=== PATIENT | male | born 1980 | race Caucasian/White ===

== ENCOUNTER 2016-12-18 12:50 | Emergency (ER) | payer SELFPAY ==
--- NOTE | 2016-12-19 15:54 | ER ---
ADMIT: 12/18/2016 RM/LOC: ER [facility] MR#: [id number] [address] [address] HEATH GIBSON [address] [place] [address] Emergency Room Report SEX: M AGE: 36 : 1980 DATE: 12/18/2016 This 36-year-old with 3 days worth of redness, swelling, and now drainage of the left foot. He said this started spontaneously, was uncertain what the precipitating event was. Denies fever or chills. See T-sheet for history and physical. Wound was prepped with iodine, I and Dd. Cultures are pending at this time. He is given 2 g Ancef in the Emergency Department IV, given prescription for Keflex and Bactrim. Instructed to follow up Tuesday. DIAGNOSES: 1. Abscess. 2. Cellulitis. Yanick Armstrong MD/ sahil JOB #: [id number] CC: Alberto Posada MD, Attending Physician Saroj Pichardo MD, Family Physician
[2016-12-25] MEDS ORDERED: AUGMENTIN 875-1 EACH PO (09:38)
[2016-12-25] MEDS ORDERED: NORCO 5-325 TA1 EACH PO (09:38)
[2016-12-25] MEDS ORDERED: GLUCOPHAGE-DPS500 MG PO (09:38)
== END 2016-12-18 14:40 | disposition home or self-care (01) ==
LOC: ER 12:50 → EDBD 12:50 → ER 14:40
DX: L02.612 Cutaneous abscess of left foot (principal); Z88.8 Allergy status to other drugs, medicaments and biological substances

== ENCOUNTER 2016-12-20 20:27 | Inpatient (IN) | payer SELFPAY ==
[~2016-12-20] VITALS: Ht 177.8 cm; Wt 81.5 kg
--- NOTE | ~2016-12-20 | CO ---
ADMIT: 12/20/2016 RM/LOC: 527 [facility] MR#: [id number] [address] [place] [address] [address] HEATH GIBSON [address] [place] [address] Consultation SEX: M AGE: 36 : 1980 DATE OF CONSULTATION: 12/21/2016 ATTENDING PHYSICIAN: Giorgi Zavala CONSULTING PHYSICIAN: Juan Carlos Fuller DPM CHIEF COMPLAINT: Left foot ulceration and abscess. HISTORY OF PRESENT ILLNESS: This is a 36-year-old male, who was seen through the ER for an abscess and admitted under City [facility]. The patient stated that 2 to 3 days ago, he began having redness and swelling. He has since had increased pain and drainage from the left foot. The patient was seen by the emergency room and started on Bactrim and Keflex. The patient was subsequently admitted for worsening symptoms. He was started on IV antibiotics. He has had severe pain in his foot. Denies any fever or chills at today's visit. PAST MEDICAL HISTORY: New onset diabetes. No previous health concerns. PAST SURGICAL HISTORY: None. SOCIAL HISTORY: Current smoker. Denies alcohol or drug abuse. FAMILY HISTORY: Noncontributory. REVIEW OF SYSTEMS: Negative except for stated above. ALLERGIES: NO KNOWN DRUG ALLERGIES. MEDICATIONS: Keflex and Bactrim. Please see the current list for hospital medications. PHYSICAL EXAMINATION: VITAL SIGNS: Temp 98.0, pulse is 68, respirations 18, blood pressure is 123/86, and O2 saturation 97% on room air. VASCULAR: DP and PT pulses are palpable bilaterally. Slight hair growth bilaterally. Capillary fill time is brisk bilaterally. NEURO: Light touch sensation is intact bilaterally. DERM: The patient has an ulceration post debridement, which measures 4.0 x 4.0 x 0.8 cm. The patient has a tunneling of 1.5 cm both proximally and at the interdigital space between the 3rd and 4th digits on the left. There is significant amount of purulent drainage. Hypergranular tissue at the wound border. Some fibrotic and necrotic tissue at the central aspect. No malodor. No proximal tracking. Edema is moderate. MUSCULOSKELETAL: Pain on palpation of the left foot. No change in the position of the digits. LABORATORY DATA: ESR is 37. Hemoglobin A1c is 9.7. Cultures are pending. Sodium 137, potassium 3.4, BUN is 10, and creatinine is 0.8. White count is 8.2, hemoglobin 13.1, hematocrit 38.3, and platelets are 241. Lactic acid is ADMIT: 12/20/2016 RM/LOC: 527 [facility] MR#: [id number] [id number] [place] [address] Consultation SEX: M AGE: 36 : 1980 1.1. X-ray shows no acute findings. MRI of the left foot shows an abscess adjacent to the ulceration. ASSESSMENT: 1. Diabetes. 2. Cellulitis. 3. Ulceration. 4. Peripheral vascular disease. PLAN: The patient was seen at bedside. Vascular and MRI were reviewed with the patient including the finding of abscess. It is determined at this time to provide Rapid Care for this condition. Bedside I and D was necessary. Verbal consent was obtained from the patient. A 5 mL of 2% lidocaine plain was used for anesthesia. Once anesthesia was obtained, sharp selective debridement down to and including the tendon and muscle was performed with a 15 blade and pickup as well as scissors. The patient tolerated this well and there were no complications. Repeat culture with swab at the depth of the wound was performed. Irrigation was provided and the wound was packed open. I suspect that the patient will need a more formal debridement with the use of local anesthesia and sedation. We will attempt to do this on . We will change the dressing twice daily with iodoform packing. Orders were written for wound care and weightbearing. We will continue to follow this patient and discuss this more with him tomorrow. The patient's questions were answered in detail. The hospital staff was used for interpretation. The risks, benefits, and alternatives as well as the likely requirements for daily dressing changes after discharge was described to him. Hope to discharge him Tuesday after the incision and drainage. His questions were answered in detail. Juan Carlos Fuller DPM/ sahil JOB #: [id number] CC: Giorgi Zavala, Attending Physician Giorgi Zavala, Family Physician
--- NOTE | ~2016-12-20 | WND ---
ADMIT: 12/20/2016 RM/LOC: 527 [facility] MR#: [id number] [id number] [place], [place] [address] HEATH GIBSON [address] [place] [address] Wound Care Clinic SEX: M AGE: 36 : 1980 DATE OF VISIT: 12/21/2016 TIME IN: 0920 hours. TIME OUT: 0925 hours. REASON FOR VISIT: Evaluation and treatment of left foot wound. Request for wound care from Dr. Mars. HISTORY OF PRESENT ILLNESS: This is a 36-year-old, male, who was seen in the emergency room on 12/18/2016, after three days worth of redness and swelling and drainage from his left foot. He stated it started spontaneously and is uncertain of any precipitating event. Denied any fever or chills. He was I and D'ed in the emergency room and cultures were taken. He was started on cephalexin and Bactrim and sent home. Request to follow up on 12/20/2016. He returned to the emergency room where it was noted he had increasing drainage, redness, and swelling of the foot. The primary wound cultures revealed group B strep susceptible to ampicillin. Emergency room spoke with Dr. Shah for admission. He was started on IV antibiotics. Wound Care is requested to see him for topical treatment. Podiatry has also been requested to see him. It was noticed that his glucose was in the 200s. WBC of 8.2, RBC is 4.4, hemoglobin 13.1, hematocrit 38.3. Electrolytes; sodium 138, potassium 3.5, chloride 105, CO2 of 22. Lactic acid on 12/20 was 1.1. His urinalysis also showed glucose. PAST MEDICAL HISTORY: Up to this point was essentially benign. ALLERGIES: To ibuprofen. CURRENT MEDICATIONS: Per the MAR. Please see the MAR for further details. 1. Glucophage 500 mg p.o. b.i.d. 2. Lovenox. 3. Zosyn. P.r.n. medication: 1. Colace. 2. Maalox. 3. Tylenol. 4. Tylenol suppository. 5. Normal saline. SOCIAL HISTORY: He is single. He is currently unemployed. He is Azeri speaking. He is living in [place] with a friend. He previously smoked. FAMILY HISTORY: Significant for strokes. REVIEW OF SYSTEMS: He is examined in his hospital bed where he is awake, alert, and oriented x3. No fever or chills. No nausea or vomiting. He is taking high-protein drinks at home. No cough, cold, or chest pain. He does ADMIT: 12/20/2016 RM/LOC: 527 [facility] MR#: [id number] [address] [id number] [place] [address] Wound Care Clinic SEX: M AGE: 36 : 1980 have increased pain when his left foot is touched. PHYSICAL EXAMINATION: Focused exam is to his left lower extremity with foot circumference 26 cm, ankle 24.5 cm, calf 20 cm, malleolus is 29.5 cm. The dorsal surface of his foot and ankle has an area of erythema that measures 6.5 cm x 10 cm. It is slightly warm to touch. On the dorsal surface of his foot between toe #3 and 4, there is a fluctuant necrotic area that measures 3 cm x 3 cm with depth of 1.2 cm. It is slightly fluctuant. There is purulent drainage noted from the wound. Posterior tibialis 1+. Dorsalis pedis is 2+. ASSESSMENT: Abscess and cellulitis to left foot between the third and fourth toe. TREATMENT PLAN: The area was cleansed well with normal saline and patted dry. The area of erythema was marked with a sharpie. He does have a Podiatry consult in place. This will need to be debrided. At this point in time, Wound Care will defer cares until after the Podiatry visit. The area was covered with oil emulsion gauze, 4x4s, and gauze wrap. The leg is elevated on pillows to help with swelling. I did speak with the floor staff. Thank you for this referral and Wound will continue to follow pending Podiatry's recommendations. Nerissa Lafleur APRN/ sahil JOB #: [id number] CC: Giorgi Zavala, Attending Physician Giorgi Zavala, Family Physician
--- NOTE | 2016-12-23 09:41 | CO ---
ADMIT: 12/20/2016 RM/LOC: 527 [facility] MR#: [id number] [address] [address] HEATH GIBSON [address] [place] [address] Consultation SEX: M AGE: 36 : 1980 DATE OF CONSULTATION: 12/21/2016 ATTENDING PHYSICIAN: Giorgi Zavala CONSULTING PHYSICIAN: Jackie Shah MD REASON FOR CONSULTATION: Left foot diabetic ulcer. Thank you, Dr. Mars, for the consult and involving me in this patient's care. HISTORY OF PRESENT ILLNESS: History was obtained via change advisor. Mr. Gibson is a 36-year-old man, originally from [facility] [place] [facility], who immigrated to [facility] around eight months back. He presented to the ER last week with increased erythema and draining abscess from his left anterior foot. He did not have any fevers or chills, and he was given 2 g of Ancef and discharged on Keflex and Bactrim. He returned back to the ER yesterday with worsening redness, erythema, and increased drainage from anterior webspace between 3rd and 4th digits. Wound cultures were done during his last visit, which grew group B Streptococcus and Gram positive avery. There are few Gram- negative rods on Gram stain as well. After reviewing his blood glucose levels and hemoglobin A1c, was also found to have diabetes mellitus. He denied any trauma or any fevers or chills at home. He is currently unemployed. PAST MEDICAL HISTORY: New diagnosis of diabetes mellitus at this admission. SOCIAL HISTORY: He lives at home with a roommate. Denies any smoking, alcohol, or recreational drug use. FAMILY HISTORY: Denies any family history of diabetes, heart disease, or cancer in the family. REVIEW OF SYSTEMS: A 10-point review of systems negative except as mentioned in HPI. PHYSICAL EXAMINATION: VITAL SIGNS: Current temperature 97, heart rate 60, respirations 18, blood pressure 114/76, and 97% on room air. GENERAL: No acute distress. HEENT: Head is normocephalic and atraumatic. Extraocular movements intact. LYMPH: No palpable anterior/posterior cervical or supraclavicular lymphadenopathy. CHEST: Clear to auscultation bilaterally. No wheezes, rales, or rhonchi. CARDIOVASCULAR: S1 and S2 heard. Regular rate and rhythm. ABDOMEN: Soft, nontender, and nondistended. Active bowel sounds. MUSCULOSKELETAL: In the left foot, there is purulent drainage expressed from the 3rd and 4th anterior web space. Significant surrounding erythema is marked over the anterior foot. Tender to palpation. ADMIT: 12/20/2016 RM/LOC: 527 [facility] MR#: [id number] [id number] [place], [place] [id number] [place] [address] Consultation SEX: M AGE: 36 : 1980 DATA REVIEW: Hemoglobin A1c is 9.7, ESR is 37. CBC shows white count of 8.2, hemoglobin 13.1, and platelets 241. CMP shows potassium of 3.4, glucose 209, creatinine of 0.8. Normal AST and ALT. ASSESSMENT AND PLAN: 1. Left foot abscess. 2. Left foot possible osteomyelitis. 3. Group B Streptococcus left foot abscess. 4. Newly diagnosed diabetes mellitus. At this time, I will order an MRI of left foot with contrast. He will need incision and drainage of the abscess. I will consult Dr. Fuller from Podiatry. For antibiotics, I will continue Zosyn for now. His blood cultures have been no growth to date. We will narrow antibiotics after wound culture is finalized. Thank you for the consult, and I will continue to follow the patient. Jackie Shah MD/ sahil JOB #: [id number] CC: Giorgi Zavala, Attending Physician Giorgi Zavala, Family Physician
--- NOTE | 2016-12-23 15:41 | NUR ---
woc rn asked by social work to help patient get supplies. pt has no insurance coverage or pay stubs to verify income. most companies ask for a tax return to verify need. working with [employer] to see if they have any samples that could work as a subsitution for the patient. aquacel daily cover with dry dressing is the plan for discharge. will work on sampling from companies if [employer] is unable to assist our patient with free supplies/eugenia care.
--- NOTE | 2016-12-24 08:07 | OR ---
ADMIT: 12/20/2016 RM/LOC: 527 [facility] MR#: [id number] [address] [address] HEATH GIBSON [address] [place] [address] Operative/Delivery Room Report SEX: M AGE: 36 : 1980 SURGERY DATE: 12/23/2016 SURGEON: Juan Carlos Fuller DPM DRY CHAIN OPERATOR: None. PREOPERATIVE DIAGNOSIS: Cellulitis and abscess of the left foot. POSTOPERATIVE DIAGNOSIS: Cellulitis and abscess of the left foot. PROCEDURE: Incision and drainage with debridement to subcutaneous and muscle of the left foot. ANESTHESIA: General with local per the Anesthesia team. COMPLICATIONS: None. SPECIMENS: None. ESTIMATED BLOOD LOSS: Less than 5 mL. FLUID REPLACEMENTS: Per Anesthesia. HEMOSTASIS: None. INJECTION: 10 mL of 0.5% Marcaine plain. MATERIALS: Iodoform packing. PREOPERATIVE STATEMENT: This patient was admitted to the hospital for cellulitis and abscess of the left foot. MRI confirmed abscess and this was mostly drained in the bed side setting, but the patient had severe pain, and it was determined at this time that surgical intervention was necessary to provide debridement and irrigation of the ulceration as well as Pain Management. The patient was seen in the preoperative area. The patient was educated about the risks, benefits, and alternatives, and his questions were answered in detail. The consent was noted to be signed and placed on the chart. The H and P is up-to-date. The labs, EKGs, and x-rays were reviewed, and there were no contraindications of the surgery at this time. OPERATIVE REPORT: This patient was brought back to the operating room under light sedation, placed on operating table in the supine position. A well- padded ankle tourniquet was placed about the patient's left ankle, but not inflated. The time-out was performed. The site marking was noted when all in agreement. The foot was prepped and draped in a normal aseptic technique, and the procedure was underway. Using a rongeur curette, 15 blade and pickup sharp selective debridement down to and including subcutaneous and tendinous structures was performed. A small ADMIT: 12/20/2016 RM/LOC: 527 [facility] MR#: [id number] [address] [address] [address] [place] [address] Operative/Delivery Room Report SEX: M AGE: 36 : 1980 incision at the distal aspect of the ulceration between the 3rd and 4th digits was created to allow access to the probing portion of the inner digital space. Again, debridement was performed and nonviable tissue was removed. The final dimensions of the lesion were 4.2 x 4.4 x 0.6 cm with some undermining of 0.6 cm at the 12 o'clock position and probing to the plantar aspect of the foot at the distal 6 o'clock position. A 3 L of sterile saline was irrigated using a Pulsavac into the wound bed. After irrigation, further inspection for nonviable tissue was performed. When there was noted to be none, the wound was packed with iodoform gauze and dry dressing with soft roll and Rivas wrap. The patient was transferred to the recovery room with vital signs stable and neurovascularly intact. He is to be returned to the inpatient status where he is to continue to receive IV antibiotics. We will hopefully allow him to be discharged on Tuesday with the help of Printing Machine Operator to arrange wound care and wound management. His dressing is to remain intact until tomorrow morning and is to be changed with packing and gauze. If he has continued improvement, we will likely discharge him tomorrow. Juan Carlos Fuller DPM/ sahil JOB #: [id number] CC: Giorgi Zavala, Attending Physician Giorgi Zavala, Family Physician
[2016-12-25] MEDS ORDERED: GLUCOPHAGE-DPS500 MG PO (09:38)
[2016-12-25] MEDS ORDERED: AUGMENTIN 875-1 EACH PO (09:38)
[2016-12-25] MEDS ORDERED: NORCO 5-325 TA1 EACH PO (09:38)
--- NOTE | 2016-12-27 07:48 | HP ---
ADMIT: 12/20/2016 RM/LOC: 527 [facility] MR#: [id number] [address] [place], [place] [address] HEATH GIBSON [address] [place] [address] History and Physical SEX: M AGE: 36 : 1980 DATE OF SERVICE: HISTORY: Heath is a 36-year-old, male, city call patient who was seen in the ER on 12/18 with abscess and open wound, left foot. Cultures were obtained and he was started on antibiotics of Bactrim and Keflex. He returned to the ER yesterday evening with increasing drainage, redness, and swelling. He is admitted for treatment as he had fever and no improvement with current antibiotics. PAST MEDICAL HISTORY: No surgeries, no health problems. SOCIAL HISTORY: He smokes 1-2 cigarettes per day. No alcohol. No drugs. FAMILY HISTORY: No diabetes. No heart disease. No cancer. 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 Denies any history of trauma. He denies any puncture wounds. Reports no cardiac or pulmonary issues. He at this time is admitted. PHYSICAL EXAMINATION: GENERAL: He is alert. We used an grease monkey. HEART: Regular rhythm. LUNGS: Clear but diminished to auscultation. ABDOMEN: Soft. EXTREMITIES: His left foot, dorsal aspect of his foot is erythematous. Superior to the great toe and 3rd and 4th toe, he has a blister which is draining a purulent white discharge with surrounding redness and erythema. LABORATORY AND RADIOGRAPHIC STUDIES: His sodium was 137, potassium 3.4, BUN and creatinine 10 and 0.8. Blood sugar 286. Albumin 3.2. His white blood cell count was 8.2, hemoglobin 13.1, platelet count 241,000. Lactic acid of 1.1. UA showed greater than 1000 glucose. No other abnormalities were noted. MEDICATIONS: He is on: 1. Bactrim. 2. Keflex. He has been taking them. ADMIT: 12/20/2016 RM/LOC: 527 [facility] MR#: [id number] [address] [address] HEATH GIBSON [address] [place] [address] History and Physical SEX: M AGE: 36 : 1980 ALLERGIES: NONE KNOWN MEDICAL ALLERGIES. ASSESSMENT AND PLAN: Admission of a 36-year-old male, with new onset diabetes, unsure of duration with evidence of cellulitis, abscess formation in the distal left foot. We at this time will admit to [facility]. He is placed on IV antibiotics, Zosyn. His cultures did come back with gram-positive organisms and group B strep. We will ask Dr. Shah to follow. We will have Wound Care see as well as Podiatry see. In addition, continue followup through Dr. Shah, Infection Disease as well as vascular evaluation. Diabetes new onset, we will start THE educational process, start metformin and continue to follow closely. We will give him a tetanus shot as well. Cynthia Mars MD/ katl JOB #: [id number] CC: Giorgi Zavala, Attending Physician Giorgi Zavala, Family Physician
--- NOTE | 2017-01-06 16:41 | ER ---
ADMIT: 12/20/2016 RM/LOC: 527 [facility] MR#: [id number] [address] [address] HEATH GIBSON [address] [place] [address] Emergency Room Report SEX: M AGE: 36 : 1980 DATE: 12/20/2016 A 36-year-old, male, comes to the Emergency Department with worsening swelling, redness, and drainage of his left foot. He was seen in the Emergency Department this past Tuesday with erythema and opened spontaneously draining abscess at that time between the 3rd and 4th digits. Wound cultures were obtained, and he was discharged on Keflex and Bactrim. He returns with worsening drainage, redness, and swelling of the foot. The preliminary wound cultures were obtained, which revealed group B streptococcus susceptible to ampicillin. CBC is pending at time of this dictation as is a BMP blood cultures. IV was established. I did speak with Dr. Shah for admission. She recommended Zosyn be given. The patient is going to be admitted with outpatient failure of antibiotic therapy for abscess and cellulitis of the left foot. Yanick Armstrong MD/ sahil JOB #: [id number] CC: Giorgi Zavala DO, Attending Physician Giorgi Zavala DO, Family Physician
--- NOTE | 2017-02-24 07:59 | DS ---
ADMIT: 12/22/2016 RM/LOC: 527 [facility] MR#: [id number] [address] [address] HEATH GIBSON [address] [place] [address] General Discharge Summary SEX: M AGE: 35 : 04/04/1981 ADMISSION DATE: 12/22/2016 DISCHARGE DATE: 12/24/2016 REASON FOR HOSPITALIZATION: Abscessed and open wound, left foot. HISTORY OF PRESENT ILLNESS: A 35-year-old, male, who came into city call, and had findings of abscess and open wound on his left foot. Cultures were obtained. He was reporting increasing drainage, redness, and swelling. HOSPITAL COURSE: Dr. Mars performed his initial assessment and arranged for initial cares including that of IV Zosyn, blood cultures, lab evaluation, and consultation with Dr. Fuller as well as Dr. Shah. He was found to have a diabetes of undetermined duration and was started on metformin 500 mg p.o. b.i.d. MRI of his foot was obtained, and Dr. Fuller performed I and D of the foot abscess. He was given diabetic education. Dr. Shah changed him to IV Unasyn and further surgical debridement was undertaken. On 12/24, he was not having any discomfort. His cultures grew group B strep. On that day, Dr. Shah signed off after changing him to oral Augmentin 875 mg p.o. b.i.d. for three weeks. The patient was dismissed with recommendations to follow up in the Wound Care Clinic and to continue Glucophage 500 mg p.o. b.i.d. FINAL DIAGNOSES: 1. Diabetic foot abscess with incision and drainage. 2. Diabetes mellitus. Giorgi Zavala DO/ modl JOB #: [id number] CC: Giorgi Zavala DO, Attending Physician Giorgi Zavala DO, Family Physician
== END 2016-12-24 17:45 | disposition home or self-care (01) | DRG 982 ==
LOC: ER 20:27 → 5MS 21:12 → EDBD 12-24 17:45
PROVIDERS: ADMIT Internal Medicine
PROC: 0KBW0ZZ Excision of Left Foot Muscle, Open Approach (ICD-10-PCS; principal; 2016-12-22)
PROC: 0LBW0ZZ Excision of Left Foot Tendon, Open Approach (ICD-10-PCS; principal; 2016-12-22)
DX: E11.621 Type 2 diabetes mellitus with foot ulcer (principal); L03.116 Cellulitis of left lower limb; L97.529 Non-pressure chronic ulcer of other part of left foot with unspecified severity; F17.210 Nicotine dependence, cigarettes, uncomplicated; B95.1 Streptococcus, group B, as the cause of diseases classified elsewhere; I73.9 Peripheral vascular disease, unspecified